=== PATIENT | female | born 1985 | race Caucasian/White ===

== ENCOUNTER 2020-08-03 18:07 | Inpatient (IN) | payer BC ==
[2020-08-03 20:54] LABS: Amphetamine Screen,Urine Not Detected (NotDetected); Barbiturate Screen,Urine Not Detected (NotDetected); Benzodiazepines Screen,Urine Not Detected (NotDetected); Cocaine Screen,Urine Not Detected (NotDetected); Methadone Screen, Urine Not Detected (NotDetected); Opiate Screen,Urine Not Detected (NotDetected); Oxycodone Screen, Urine Not Detected (NotDetected); Phencyclidine Screen,Urine Not Detected (NotDetected); Tricyclic Antidepressant,Urine Not Detected (NotDetected); Urn Cannabinoid Scrn Detected (NotDetected)
--- NOTE | 2020-08-03 21:56 | ED ---
Psych HPI - General Chief Complaint: Psychiatric Symptoms Stated Complaint: Mental Health Time Seen by Provider: 08/03/20 19:29 Source: patient Mode of arrival: ambulatory - History of Present Illness Initial Comments: 35 year-old female patient presents to the emergency department for evaluation of increased depression and suicidal ideation. States that she has been taking half doses of her Zoloft because she recently moved to the area and does not have a prescribing physician. She States that she has been feeling very sad and unable to find dmitry in activities with her children or general life. States she has been having thoughts of suicide, but denies any specific plan. States she has thought of taking pills or driving her car off of the road. Denies history of suicide attempt. Does report a history of self harming. Denies previous admission to mental health unit. [place] [facility] where she is originally from. Patient denies any recent rash, cough, shortness of breath, chest pain, abdominal pain, nausea, vomiting, diarrhea, constipation, back pain, numbness, tingling, dizziness, weakness, hematuria, dysuria, urinary urgency, urinary frequency, headache, visual changes, or any other complaints. Reports using marijuana and adderall. Denies other drugs. Denies alcohol use. - Related Data Home Medications Medication Instructions Recorded Confirmed Sertraline [Zoloft] 50 mg PO DAILY 08/03/20 08/03/20 Allergies Allergy/AdvReac Type Severity Reaction Status Date / Time No Known Allergies Allergy Unverified 08/03/20 23:18 Review of Systems ROS Statement: Those systems with pertinent positive or pertinent negative responses have been documented in the HPI. ROS Other: All systems not noted in ROS Statement are negative. Past Medical History Past Medical History: No Reported History History of Any Multi-Drug Resistant Organisms: None Reported Past Surgical History: Cholecystectomy Additional Past Surgical History / Comment(s): lithotripsy, D and C Past Psychological History: Anxiety, Depression Smoking Status: Vaper Past Alcohol Use History: Occasional Past Drug Use History: Marijuana General Exam Limitations: no limitations General appearance: alert, in no apparent distress, other (This is a well- developed, well-nourished adult female patient in no acute distress. Vital signs upon presentation are temperature 98.9F, pulse 85, respirations 17, blood pressure 120/78, pulse ox 100% on room air.) Eye exam: Present: normal appearance, PERRL, EOMI. Absent: scleral icterus, conjunctival injection, periorbital swelling ENT exam: Present: normal exam, normal oropharynx, mucous membranes moist Respiratory exam: Present: normal lung sounds bilaterally. Absent: respiratory distress, wheezes, rales, rhonchi, stridor Cardiovascular Exam: Present: regular rate, normal rhythm, normal heart sounds. Absent: systolic murmur, diastolic murmur, rubs, gallop, clicks GI/Abdominal exam: Present: soft, normal bowel sounds. Absent: distended, tenderness, guarding, rebound, rigid Neurological exam: Present: alert, oriented X3, CN II-XII intact Psychiatric exam: Present: depressed, suicidal ideation. Absent: homicidal ideation Skin exam: Present: warm, dry, intact, normal color. Absent: rash Course Vital Signs 08/03/20 19:09 Temperature 98.9 F Pulse Rate 85 Respiratory 17 Rate Blood Pressure 120/78 O2 Sat by Pulse 100 Oximetry Medical Decision Making - Medical Decision Making 35-year-old female patient presents to the emergency department today for evaluation of depression and suicidal ideation. Physical examination was unremarkable. She was cleared medically and evaluated by emergency psychiatric services. She did meet inpatient criteria be transferred to the mental health unit. Patient is agreeable and did sign in voluntarily. My attending is Dr. Jordan. - Lab Data Lab Results 08/03/20 Range/Units 20:36 Urine Opiates Screen Not Detected (NotDetected) Ur Oxycodone Screen Not Detected (NotDetected) Urine Methadone Screen Not Detected (NotDetected) Ur Propoxyphene Screen Not Detected (NotDetected) Ur Barbiturates Screen Not Detected (NotDetected) U Tricyclic Antidepress Not Detected (NotDetected) Ur Phencyclidine Scrn Not Detected (NotDetected) Ur Amphetamines Screen Not Detected (NotDetected) U Methamphetamines Scrn Not Detected (NotDetected) U Benzodiazepines Scrn Not Detected (NotDetected) Urine Cocaine Screen Not Detected (NotDetected) U Marijuana (THC) Screen Detected H (NotDetected) Disposition Clinical Impression: Suicidal ideation, Depression Disposition: TRANSFER TO PSYCH HOSP/UNIT Condition: Serious - Out of Hospital Transfer - Req. Specs Out of Hospital Transfer - Requested Specifics: Psychiatric Non-ICU ([facility])
[2020-08-04] MEDS ORDERED: ACETAMINOPHEN TAB 325 MG TAB PO PRN (00:17)
[2020-08-04] MEDS ORDERED: MAG HYDROX/AL HYDROX/SIMETH 30 ML CUP PO PRN (00:17)
[2020-08-04] MEDS ORDERED: MAGNESIUM HYDROXIDE 2,400 MG/10 ML CUP PO PRN (00:17)
[2020-08-04] MEDS ORDERED: LORazepam 2 MG/ML INJ IM PRN (00:19)
[2020-08-04] MEDS ORDERED: HALOPERIDOL LACTATE 5 MG/ML 1 ML VIAL IM PRN (00:20)
[2020-08-04] MEDS ORDERED: haloperidoL 5 MG TAB PO PRN (00:20)
[2020-08-04] MEDS: LORazepam 1 MG TAB PO PRN ×2 (04:17→20:44)
[2020-08-04] MEDS ORDERED: NICOTINE 7MG/24HR PATCH TRANSDERM SCH (09:00)
[2020-08-04] MEDS ORDERED: SERTRALINE 50 MG TAB PO SCH (09:00)
--- NOTE | 2020-08-04 09:22 | P.CONS ---
History of Present Illness - Reason for Consult Consult date: 08/04/20 - Chief Complaint Depression - History of Present Illness This is a 35-year-old white female who reported to the hospital with depression and suicidal ideations. She has been admitted to the inpatient psych unit. At the level examination patient feels okay, no chest pain no abdominal pain, no nausea no vomiting no dizziness no shortness of breath Review of Systems 10 systems reviewed, pertinent positive and negative findings as in HPI. No chest pain no abdominal pain Past Medical History Past Medical History: No Reported History History of Any Multi-Drug Resistant Organisms: None Reported Past Surgical History: Cholecystectomy Additional Past Surgical History / Comment(s): lithotripsy, D and C Past Psychological History: Anxiety, Depression Smoking Status: Vaper Past Alcohol Use History: Occasional Past Drug Use History: Marijuana Medications and Allergies Home Medications Medication Instructions Recorded Confirmed Type Sertraline [Zoloft] 50 mg PO DAILY 08/03/20 08/03/20 History Allergies Allergy/AdvReac Type Severity Reaction Status Date / Time No Known Allergies Allergy Unverified 08/03/20 23:18 Physical Exam Vitals: Vital Signs Temp Pulse Pulse Resp BP BP Pulse Ox 08/04/20 03:54 97.6 F 59 L 18 105/59 99 08/04/20 03:40 98.0 F 64 18 110/64 99 08/03/20 19:09 98.9 F 85 17 120/78 100 Intake and Output 08/03/20 08/04/20 08/04/20 22:59 06:59 14:59 Other: Weight 61.235 kg 62.2 kg Constitutional: No acute distress, conversant, pleasant Eyes: Anicteric sclerae, moist conjunctiva ENMT: NC/AT,Oropharynx clear Neck:Supple, FROM, no masses, or JVD, No carotid bruits; No thyromegaly Lungs: Clear to auscultation, Clear to percussion, Normal respiratory effort, no accessory muscle use Cardiovascular: Heart regular in rate and rhythm, No murmurs, gallops, or rubs no peripheral edema Abdominal: Soft Nontender, nom distended, no guarding, no rebound or rigidity, Normoactive bowel sounds No hepatomegaly, No splenomegaly, No palpable mass No abdominal wall hernia noted Skin: Normal temperature, tone, texture, turgor, No induration No subcutaneous nodules, No rash, lesions, No ulcers Extremities:No digital cyanosis No clubbing, Pedal pulses intact and symmetrical Radial pulses intact and symmetrical Normal gait and station, No calf tenderness Psychiatric: Depression Neuro: Muscles Strength 5/5 in all 4 extremities, Sensation to light touch grossly present throughout, Cranial nerves II-XII grossly intact. Results Labs: Abnormal Lab Results - Last 24 Hours (Table) 08/03/20 Range/Units 20:36 U Marijuana (THC) Screen Detected H (NotDetected) Assessment and Plan Plan: 1. Depression: Management per psychiatry 2. Suicidal ideation: Supportive care 3. Anxiety: When necessary Ativan 4. Tobacco use without evidence of withdrawal: Nicotine patch as indicated
--- NOTE | 2020-08-04 12:16 | P.HP ---
Psychiatric H&P - . H&P Date: 08/04/20 History & Physical: IDENTIFYING DATA: She is 35-year-old female admitted to a psychiatric voluntarily with complaints of depression and suicidal ideation. HISTORY OF PRESENT ILLNESS: She reports feeling depressed for at least the last year and her depression worsened over the week prior to admission. She talked about spending the weekend with her 2 children at a [place] park but was unable to enjoy herself. After she returned to children to their father (they share custody), she felt more depressed and began having thoughts of suicide. She denied that she had a specific plan or intent but became frightened by her thoughts. Her depression appears to have worsened with the dissolution of her marriage. She described a difficult marital relationship with frequent fighting. She left her in July last year after a severe argument where he discovered that she was having a "emotional" relationship with another man. She remained in [facility] until her mother moved to [place]. She moved to [place] with the belief that she would have a fresh start. 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 She temporarily live with her mother but has moved into her own apartment. She described feeling alone and having limited social supports. She has no friends in [facility] and her mother spends most of her time with her new . She described classic symptoms of depression including fatigue, listlessness, anergy, anhedonia, impaired sleep and overwhelming guilt about her marital relationship and family. A primary care provider prescribed her Xanax and Zoloft for her depression. She stated that she did not take the Zoloft on a regular basis. However, she was introduced to Adderall after she moved to [place]. She found that the Adderall temporarily improved her depression, increased her energy, concentration and focus. When she took the Adderall she was able to work productively and would attend to her personal hygiene and activities of daily living. She has been taking approximately 10 mg of Adderall per day and spending $300 per month on Adderall. Her depression worsened rece ntly when she was unable buy Adderall. She denied use of other drugs with the exception of occasional marijuana and cocaine "once or twice." She denied that she had used cocaine on a frequent or daily basis. She denied use of other drugs get high, help her sleep or change her mood such as oral opiate pain medications, heroin, crack cocaine, methamphetamine or hallucinogens. She denied regular use of alcohol. PAST PSYCHIATRIC HISTORY: No prior psychiatric hospitalizations. she and her met with the marital therapist and she met "couple times" with an individual therapist but did not consistently follow through with treatment. Her primary care provider recently prescribed her Zoloft for the treatment of her depression using Xanax for her anxiety complaints. PAST MEDICAL HISTORY: History of medical problems. ALLERGIES: No drug ALLERGIES SUBSTANCE USE HISTORY: She began smoking marijuana when she was 15 years old. During her adolescence and early adulthood she described her use as "heavy"er. Now, she smokes marijuana infrequently. As mentioned above she has been using Adderall occasionally cocaine. She denied participation in substance abuse treatment program. She denied a family or friends have complained to her about her use of alcohol or drugs. FAMILY PSYCHIATRIC/SUBSTANCE USE HISTORY: She described a history of depression in her mother and her 2 younger sisters. Her stepfather has history of alcohol use problems and attempted suicide. His father by suicide. LEGAL HISTORY: Denied history of legal problems. SOCIAL HISTORY: His born and raised in [facility]. Her parents when she was an . She was raised by her mother and stepfather. She graduated from high school. She when she was 24. They have 2 children ages 7 and 9. They're but share joint custody of the children. 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 MENTAL STATUS EXAM: She presented as a casually groomed sad and tearful 35-year-old female who was pleasant on approach. She made eye contact and attended to the interview. He cried throughout the interview. She had no distinguishing features or prominent physical abnormalities. She had a sad facial expression. She is alert and oriented to person, place and time. She showed psychomotor retardation but no abnormal involuntary movements. Her speech was spontaneous with normal rate and rhythm. She had no articulation difficulties. Affect was depressed and not reactive. She expressed suicidal thoughts and wishes but denied suicidal plan during 10. She had depressive cognitions including hopelessness, helplessness or worthlessness. She ruminated about her marital problems, chronic depression and difficulty adjusting to her new residence. She did not express ideas reference, paranoid ideation, magical ideation or delusions. Her thinking was abstract and associations were coherent, logical and goal directed. She denied hallucinations did not appear to be responding to internal stimuli. Global impression of intellect is average to above. She is aware of illness and need for treatment. STRENGTHS: Good physical health, stable housing, stable employment WEAKNESSES: Marital separation, separation from children, recent move, lack of social supports, abuse of Adderall IMPRESSION: She has a 35-year-old female presented to unit with signs and symptoms of major depression, hopelessness, helplessness and thoughts of or suicide. Her depression about with the breakup of her marriage and the move to the [facility] from [facility]. She moved to the [facility] after her mother remarried. The depressive symptoms have worsened with recent abuse of Adderall. She was able to find gainful employment but has limited social supports. She benefit from combination of psychopharmacology and multimodal therapy. PRINCIPLE DIAGNOSIS: Major depressive disorder severe without psychotic features, amphetamine use disorder moderate, rule out amphetamine withdrawal, medical problems with separation, lack of supports. RECOMMENDATION: Admit to the psychiatric unit. Safety precautions. Consult medicine for initial physical exam and medical history. 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 Continue Zoloft and titrated dose to 100-200 mg daily. Consider augmentation strategies if depressive symptoms do not resolve. Evaluate the need for substance abuse treatment services. Encourage participation in therapeutic groups and activities. Evaluate clinical status response to treatment daily basis. Allergies Allergy/AdvReac Type Severity Reaction Status Date / Time No Known Allergies Allergy Unverified 08/03/20 23:18 Vital Signs Temp 97.6 F 08/04/20 03:54 Pulse 59 L 08/04/20 03:54 Resp 18 08/04/20 03:54 BP 105/59 08/04/20 03:54 Pulse Ox 99 08/04/20 03:54 Intake & Output 08/03/20 08/04/20 08/04/20 18:59 06:59 18:59 Weight 62.2 kg Laboratory Last Values Urine Opiates Screen Not Detected (NotDetected) 08/03/20 20:36 Ur Oxycodone Screen Not Detected (NotDetected) 08/03/20 20:36 Urine Methadone Screen Not Detected (NotDetected) 08/03/20 20:36 Ur Propoxyphene Screen Not Detected (NotDetected) 08/03/20 20:36 Ur Barbiturates Screen Not Detected (NotDetected) 08/03/20 20:36 U Tricyclic Antidepress Not Detected (NotDetected) 08/03/20 20:36 Ur Phencyclidine Scrn Not Detected (NotDetected) 08/03/20 20:36 Ur Amphetamines Screen Not Detected (NotDetected) 08/03/20 20:36 U Methamphetamines Scrn Not Detected (NotDetected) 08/03/20 20:36 U Benzodiazepines Scrn Not Detected (NotDetected) 08/03/20 20:36 Urine Cocaine Screen Not Detected (NotDetected) 08/03/20 20:36 U Marijuana (THC) Screen Detected (NotDetected) H 08/03/20 20:36 Coronavirus (PCR) Not Detected (Not Detectd) 08/04/20 00:09 08/04/20 10:15 08/04/20 12:12
[2020-08-04] MEDS: NICOTINE 14MG/24HR PATCH TRANSDERM SCH (19:43)
[2020-08-05 07:17] LABS: ALT 16 U/L (4-34); AST 22 U/L (14-36); African American GFR (CKD) >90 (>60 ml/min/1.73 sqM); Albumin 3.9 g/dL (3.5-5.0); Alkaline Phosphatase 52 U/L (38-126); Anion Gap 6 mmol/L; Blood Urea Nitrogen 6 mg/dL (7-17); Calcium 9.6 mg/dL (8.4-10.2); Carbon Dioxide 27 mmol/L (22-30); Chloride 107 mmol/L (98-107); Cholesterol 165 mg/dL (<200); Glucose 87 mg/dL (74-99); HDL Cholesterol 43 mg/dL (40-60); LDL Cholesterol,Calculated 102 mg/dL (0-99); Non-African American GFR(CKD) >90 (>60 ml/min/1.73 sqM); Potassium 4.1 mmol/L (3.5-5.1); Sodium 140 mmol/L (137-145); Total Bilirubin 0.5 mg/dL (0.2-1.3); Total Protein 6.4 g/dL (6.3-8.2); Triglycerides 102 mg/dL (<150)
[2020-08-05 07:39] LABS: Basophils # (A) 0.1 k/uL (0-0.2); Basophils % (A) 1 %; Eosinophils # (A) 0.3 k/uL (0-0.7); Eosinophils % (A) 4 %; HCT 39.6 % (34.0-46.0); HGB 13.5 gm/dL (11.4-16.0); Lymphocytes # (A) 2.7 k/uL (1.0-4.8); Lymphocytes % (A) 40 %; MCH 32.9 pg (25.0-35.0); MCV 96.8 fL (80.0-100.0); Mean Platelet Volume 6.7; Monocytes # (A) 0.4 k/uL (0-1.0); Monocytes % (A) 5 %; Neutrophils # (A) 3.3 k/uL (1.3-7.7); Neutrophils % (A) 48 %; Platelet Count 390 k/uL (150-450); RBC 4.09 m/uL (3.80-5.40); RDW 11.9 % (11.5-15.5); WBC 6.9 k/uL (3.8-10.6)
[2020-08-05] MEDS: NICOTINE 14MG/24HR PATCH TRANSDERM SCH (07:54)
[2020-08-05] MEDS: SERTRALINE 100 MG TAB PO SCH (07:54)
--- NOTE | 2020-08-05 13:42 | P.PN ---
Progress Note - Text Progress Note Date: 08/05/20 Clinical Problems: Major depressive disorder severe without psychotic features, amphetamine use disorder moderate, rule out amphetamine withdrawal, marital problems with separation, lack of supports. Interim history: I reviewed the medical record, interviewed the patient and discussed her treatment and treatment plan during team meeting. She reported no adverse effects to the increased dose of Zoloft. However, she continues to described depression, hopelessness, helplessness and worthlessness. She has intermittent thoughts of suicide but denied intent or plan. She perseverated during the interview on feeling as though she has no future and no reason to live. She believes that she has "messed up my life" to such an extent that it is unrepairable. She is distressed by the effect of the marital separation on her 2 children particularly the 7-year-old. She gave more information about her treatment history. Apparently she was treated with Paxil from the ages of 19 and 25. She stopped the Paxil when she became with her first child. She restarted an antidepressant (she does not remember the name) and continue the medication until she became with her second child. She also met with a therapist intermittently and talked about her inconsistency with appointments to the point where she had been dropped by therapists. She was meeting with a tele-therapist in [place] before she moved to [place]. The therapist advised her against moving to [place]. She regrets that she did not listen to the therapist's advice. We discussed her use of Adderall and talked about how chronic use of Adderall can cause a depressive syndrome. Mental status exam: She presented as a thin casually groomed woman who was pleasant on approach. She made eye contact and attended the interview. She cried throughout most of the interview. She had a sad facial expression. She showed psychomotor retardation. Her speech was spontaneous and consistent with her mood. Her affect was depressed and not reactive. She expressed suicidal ideation and wishes. She denied suicidal intent or plan. He she expressed, as noted above, feelings of hopelessness, helplessness and worthlessness. She ruminated about her decisions, her marriage and her children. She did not express ideas of reference, paranoid ideation, magical ideation or delusions. Her thinking was abstract and associations were coherent and logical. She did not demonstrate neologisms or blocking. She denied hallucinations did not appear to be responding to internal stimuli. Assessment: She remains seriously mentally ill and minimally improve from admission. She continues to have signs and symptoms of major depressive disorder with suicidal ideation. Plan: Continue inpatient treatment. Continue safety precautions. Continue Zoloft 100 mg daily and titrated according to clinical response and tolerance. Consider augmentation strategies if the depression does not improve. Habitrol for smoking cessation. Ativan and/or Haldol for anxiety, agitation acute psychosis. Encourage continued participation in therapeutic groups and activities. Evaluate clinical status response to treatment daily basis.
[2020-08-05 19:24] LABS: Hemoglobin A1C 5.1 % (4.0-6.0)
[2020-08-05] MEDS: LORazepam 1 MG TAB PO PRN (21:08)
[2020-08-06] MEDS: NICOTINE 14MG/24HR PATCH TRANSDERM SCH (08:51)
[2020-08-06] MEDS: SERTRALINE 100 MG TAB PO SCH (08:52)
[2020-08-06 08:55] VITALS: RESP 16
[2020-08-06] MEDS: NICOTINE POLACRILEX 2 MG GUM BUCCAL PRN ×2 (09:05→13:45)
--- NOTE | 2020-08-06 15:59 | P.PN ---
Progress Note - Text Progress Note Date: 08/06/20 Clinical Problems: Major depressive disorder severe without psychotic features, amphetamine use disorder moderate, rule out amphetamine withdrawal, marital problems with separation, lack of supports. Interim history: I reviewed the medical record and interviewed the patient. She feels less depressed and anxious than on admission. She is finding herself able to concentrate and engage in social and therapeutic activities. She enjoyed the visit this morning with her sister who drove from [place] this morning. She denied experiencing suicidal thoughts or wishes. Mental status exam: She presented as a thin casually groomed woman who was pleasant on approach. She made eye contact and attended the interview. She had a depressed bright facial expression. She had no abnormality of psychomotor activity. Her speech was spontaneous and consistent with her mood. Her affect was blunted but reactive. She expressed suicidal ideation and wishes. She denied suicidal intent or plan. He did not express feelings of hopelessness, helplessness and worthlessness. She did not express ideas of reference, paranoid ideation, magical ideation or delusions. Her thinking was abstract and associations were coherent and logical. . She denied hallucinations did not appear to be responding to internal stimuli. Assessment: She is moderately mentally ill and much improve from admission. Depression symptoms appear to have improved and she is denying current suicidal thoughts Plan: Continue inpatient treatment. Continue safety precautions. Continue Zoloft 100 mg daily and titrated according to clinical response and tolerance. Consider augmentation strategies if the depression does not improve. Habitrol for smoking cessation. Ativan and/or Haldol for anxiety, agitation acute psychosis. Encourage continued participation in therapeutic groups and activities. Evaluate clinical status response to treatment daily basis.
[2020-08-06 16:57] LABS: Glucose,Whole Blood 90 mg/dL (75-99)
[2020-08-06] MEDS: LORazepam 1 MG TAB PO PRN (21:03)
[2020-08-07] MEDS ORDERED: MELATONIN 5 MG TABLET PO STA (01:42)
[2020-08-07] MEDS: SERTRALINE 100 MG TAB PO SCH (08:31)
[2020-08-07] MEDS: NICOTINE POLACRILEX 2 MG GUM BUCCAL PRN (08:32)
[2020-08-07] MEDS: NICOTINE 14MG/24HR PATCH TRANSDERM SCH (11:16)
[2020-08-07] MEDS ORDERED: TEMAZEPAM 30 MG CAP PO PRN (14:09)
--- NOTE | 2020-08-07 15:09 | P.PN ---
Progress Note - Text Progress Note Date: 08/07/20 Clinical Problems: Major depressive disorder severe without psychotic features, amphetamine use disorder moderate, rule out amphetamine withdrawal, marital problems with separation, lack of supports. Interim history: I reviewed the medical record and interviewed the patient. She feels more irritable than yesterday. She talked about the difficulties that led to her room change, missing her children and apparent difficulty she sat with obtaining when necessary medications. She is unable to sleep last night despite taking 1 mg of Ativan. She denied having thoughts of or suicide and remains committed to following through with outpatient mental health treatment. She plans to drive to [place] [facility] to spend time with her sister and lives with her children. Mental status exam: She presented as a thin casually groomed woman who was pleasant on approach. She made eye contact and attended the interview. She had a sad facial expression. She had no abnormality of psychomotor activity. Her speech was spontaneous and consistent with her mood. Her affect was irritable. She did not express suicidal ideation and wishes. She denied suicidal intent or plan. He did not express feelings of hopelessness, helplessness and worthlessness. She did not express ideas of reference, paranoid ideation, magical ideation or delusions. Her thinking was abstract and associations were coherent and logical. She denied hallucinations did not appear to be responding to internal stimuli. Assessment: She is moderately mentally ill andmoderately improve from admission. On I don't think that irritability is secondary to the antidepressant but will hold off further increases. Plan: Continue inpatient treatment. Continue safety precautions. Continue Zoloft 100 mg daily and titrated according to clinical response and tolerance. Consider augmentation strategies if the depression does not improve. Habitrol for smoking cessation. Ativan and/or Haldol for anxiety, agitation acute psychosis. Encourage continued participation in therapeutic groups and activiti es. Evaluate clinical status response to treatment daily basis.
[2020-08-08 04:53] VITALS: BP 117/73; PULSE 76; TEMP 97.3
[2020-08-08] MEDS: SERTRALINE 100 MG TAB PO SCH (08:34)
[2020-08-08] MEDS: NICOTINE 14MG/24HR PATCH TRANSDERM SCH (08:34)
--- NOTE | 2020-08-08 13:36 | P.DS ---
Providers Date of admission: 08/04/20 00:15 Attending physician: Lambert Pal MD Consults: 08/04/20 00:17 Consult Physician Routine Consulting Provider: Pk Velarde Consult Reason/Comments: h and p Do you want consulting provider notified?: Yes Primary care physician: Stated None - Discharge Diagnosis(es) (1) Suicidal ideation Current Visit: Yes Status: Resolved Priority: Medium (2) Major depressive disorder, recurrent severe without psychotic features Current Visit: Yes Status: Acute Priority: High (3) Amphetamine use disorder, moderate Current Visit: Yes Status: Chronic Priority: High (4) Amphetamine withdrawal Current Visit: Yes Status: Resolved Priority: Low (5) Marital problem involving divorce Current Visit: Yes Status: Chronic Priority: High Hospital Course: HISTORY: She is 35-year-old female admitted to a psychiatric voluntarily with complaints of depression and suicidal ideation. She reports feeling depressed for at least the last year and her depression worsened over the week prior to admission. She talked about spending the weekend with her 2 children [place] park but was unable to enjoy herself. After she returned to children to their father (they share custody), she felt more depressed and began having thoughts of suicide. She denied that she had a specific plan or intent but became frightened by her thoughts. Her depression appears to have worsened with the dissolution of her marriage. She described a difficult marital relationship with frequent fighting. She left her in July last year after a severe argument where he discovered that she was having a "emotional" relationship with another man. She remained in [facility] until her mother moved to [place]. She moved to [place] with the belief that she would have a fresh start. 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 She temporarily live with her mother but has moved into her own apartment. She described feeling alone and having limited social supports. She has no friends in [facility] and her mother spends most of her time with her new . She described classic symptoms of depression including fatigue, listlessness, anergy, anhedonia, impaired sleep and overwhelming guilt about her marital relationship and family. A primary care provider prescribed her Xanax and Zoloft for her depression. She stated that she did not take the Zoloft on a regular basis. However, she was introduced to Adderall after she moved to [place]. She found that the Adderall temporarily improved her depression, increased her energy, concentration and focus. When she took the Adderall she was able to work productively and would attend to her personal hygiene and activities of daily living. She has been taking approximately 10 mg of Adderall per day and spending $300 per month on Adderall. Her depression worsened recently when she was unable buy Adderall. She denied use of other drugs with the exception of occasional marijuana and cocaine "once or twice." She denied that she had used cocaine on a frequent or daily basis. She denied use of other drugs get high, help her sleep or change her mood such as oral opiate pain medications, heroin, crack cocaine, methamphetamine or hallucinogens. She denied regular use of alcohol. No prior psychiatric hospitalizations. she and her met with the marital therapist and she met "couple times" with an individual therapist but did not consistently follow through with treatment. Her primary care provider recently prescribed her Zoloft for the treatment of her depression using Xanax for her anxiety complaints. HOSPITAL COURSE: We admitted her to the psychiatric unit under the care of this wire. We provided a copy a biopsychosocial assessment. The network consultant employment attorney completed initial physical exam and medical history and only diagnosed tobacco use. We treated her nicotine withdrawal with A trial of 15 mg daily. We restarted Zoloft and increase the dose to 5 mg per day. She experiences a general dysphoria and difficulty sleeping with the increased dose but reported a decrease in anxiety and improvement in her mood. She participated actively in therapeutic groups and activities. She met with her family during this patient and after her family meeting decided that she moved back to [place] at the end of release. She believes that moving to [place] away from her family was a poor decision. She had no episodes of behavioral dyscontrol. She expressed no interest in resuming outpatient mental health treatment including individual therapy. MENTAL STATUS ON DISCHARGE: She presented as a thin casually groomed woman who was pleasant on approach. She made eye contact and attended the interview. 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 She had no abnormality of psychomotor activity. Her speech was spontaneous and consistent with her mood. Her affect was calm and stable She did not express suicidal ideation and wishes. She denied suicidal intent or plan. He did not express feelings of hopelessness, helplessness and worthlessness. She did not express ideas of reference, paranoid ideation, magical ideation or delusions. Her thinking was abstract and associations were coherent and logical. She denied hallucinations did not appear to be responding to internal stimuli. DISPOSITION: Return home. 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 Continue Zoloft 100 mg per day. Patient Condition at Discharge: Stable Plan - Discharge Summary Discharge Rx Participant: No New Discharge Prescriptions: New Nicotine 14Mg/24Hr Patch [Habitrol] 1 patch TRANSDERM DAILY #0 patch Sertraline [Zoloft] 100 mg PO DAILY #30 tab Discontinued Sertraline [Zoloft] 50 mg PO DAILY Discharge Medication List Nicotine 14Mg/24Hr Patch [Habitrol] 1 patch TRANSDERM DAILY #0 patch 08/08/20 [Rx] Sertraline [Zoloft] 100 mg PO DAILY #30 tab 08/08/20 [Rx] Follow up Appointment(s)/Referral(s): [facility] [NON-STAFF] - 1 Week Patient Instructions/Handouts: How to Stop Smoking (DC), Depression (DC) Activity/Diet/Wound Care/Special Instructions: Activity and diet as tolerated. Avoid the use of street drugs and alcohol. Take all medications as prescribed. When you are in need of refills on your medications please contact your medical provider and/or outpatient psychiatrist to have this done. Please go to scheduled outpatient appointment for aftercare treatment. If symptoms return or become worse, call the crisis line at and/or go to the nearest emergency room for evaluation. Discharge Disposition: HOME SELF-CARE
== END 2020-08-08 15:04 | disposition home or self-care (01) | DRG 885 ==
LOC: EC 18:07 → 3MHU 08-04 00:15
PROVIDERS: ADMIT Psychiatry & Neurology Psychiatry; ATTEND Psychiatry & Neurology Psychiatry
DX: F33.2 Major depressive disorder, recurrent severe without psychotic features (principal); F15.23 Other stimulant dependence with withdrawal; F17.213 Nicotine dependence, cigarettes, with withdrawal; R45.851 Suicidal ideations; F41.9 Anxiety disorder, unspecified; Z63.0 Problems in relationship with spouse or partner; Z79.899 Other long term (current) drug therapy; Z81.8 Family history of other mental and behavioral disorders; Z20.822 Contact with and (suspected) exposure to COVID-19; Z90.49 Acquired absence of other specified parts of digestive tract; Z87.442 Personal history of urinary calculi; Z60.2 Problems related to living alone
CPT/HCPCS: 80053; 80061; 80306; 82075; 83036; 84443; 85025; 87635; 99285